=== PATIENT | male | born 1945 | race Caucasian/White ===

== ENCOUNTER → 2019-07-06 | Outpatient (CLI) | payer OTHER | END | disposition home or self-care (01) | LOC: PETCFH 12:27 | PROVIDERS: ATTEND Internal Medicine Pulmonary Disease | DX: C79.51 Secondary malignant neoplasm of bone (principal); C78.7 Secondary malignant neoplasm of liver and intrahepatic bile duct; R91.1 Solitary pulmonary nodule | CPT/HCPCS: 78815; A9552 ==